=== PATIENT | male | born 2000 | race Hispanic/Latino ===

== ENCOUNTER 2020-07-16 23:26 | Emergency (ER) | payer BC ==
--- NOTE | 2020-07-17 00:21 | EDPHYS ---
Physician Documentation [facility] Name: Moustapha Sagastume Age: 20 yrs Sex: Male : 2000 Arrival Date: 07/16/2020 Time: 23:27 Bed 4 Private MD: ED Physician Chuck Salcedo HPI: 07/17 00:09 This 20 yrs old Male presents to ER via Ambulatory with complaints of tw4 Infection On Leg. 00:09 The patient was bitten on the lateral aspect of left calf, left lateral ankle, lateral tw4 aspect of left foot, medial aspect of left calf, left medial ankle and medial aspect of left foot. Onset: The symptoms/episode began/occurred today. Animal information: bit by ant after stepping in an ant pile. Secondary to the bite the patient reports warmth. Associated signs and symptoms: The patient has no apparent associated signs or symptoms. The patient has not experienced similar symptoms in the past. Historical: - Allergies: 07/16 23:53 No Known Allergies; lp1 - Home Meds: 23:53 None [Active]; lp1 - PMHx: 23:53 Depression; lp1 - PSHx: 23:53 None; lp1 - Immunization history:: Adult Immunizations up to date. - Social history:: Smoking status: Patient denies any tobacco usage or history of. ROS: 07/17 00:09 Constitutional: Negative for fever, chills, and weight loss, Eyes: Negative for injury, tw4 pain, redness, and discharge, Cardiovascular: Negative for chest pain, palpitations, and edema, Respiratory: Negative for shortness of breath, cough, wheezing, and pleuritic chest pain, Abdomen/GI: Negative for abdominal pain, nausea, vomiting, diarrhea, and constipation, Back: Negative for injury and pain. MS/extremity: Positive for erythema. Skin: Positive for cellulitis, erythema, Negative for abrasions, abscesses, avulsion, burn, discoloration, ecchymosis, hematoma, jaundice. Exam: 00:09 Constitutional: This is a well developed, well nourished patient who is awake, alert, tw4 and in no acute distress. Eyes: Pupils equal round and reactive to light, extra-ocular motions intact. Lids and lashes normal. Conjunctiva and sclera are non-icteric and not injected. Cornea within normal limits. Periorbital areas with no swelling, redness, or edema. Cardiovascular: Regular rate and rhythm with a normal S1 and S2. No gallops, murmurs, or rubs. Normal PMI, no JVD. No pulse deficits. Respiratory: Lungs have equal breath sounds bilaterally, clear to auscultation and percussion. No rales, rhonchi or wheezes noted. No increased work of breathing, no retractions or nasal flaring. 00:09 Skin: Appearance: Color: erythematous, injury, bite(s), superficial, rash a moderate rash is noted, consistent with on the lateral aspect of left calf, left lateral ankle, lateral aspect of left foot, left calf, left Achilles, left heel, medial aspect of left calf, left medial ankle, medial aspect of left foot, left stanton, anterior aspect of left ankle and dorsum of left foot. Vital Signs: 07/16 23:48 BP 119 / 76; Pulse 72; Resp 16; Temp 98.3(O); Pulse Ox 100% on R/A; Weight 63.5 kg (R); lp1 MDM: 23:38 Patient medically screened. tw4 07/17 06:53 Differential diagnosis: superficial laceration. Data reviewed: vital signs, nurses tw4 notes. Counseling: I had a detailed discussion with the patient and/or guardian regarding: the historical points, exam findings, and any diagnostic results supporting the discharge/admit diagnosis. Special discussion: I discussed with the patient/guardian in detail that at this point there is no indication for admission to the hospital. It is understood, however, that if the symptoms persist or worsen the patient needs to return immediately for re-evaluation. Administered Medications: 00:05 Not Given (Physician Discretion): Cleocin 600 mg IVPB once over 30 mins; (mix in 50 mL) wh 00:19 Drug: Cleocin 600 mg Route: IM; Site: right gluteus; wh 00:46 Follow up: Response: Medication administered at discharge. rv 00:44 Drug: SOLU-Medrol 125 mg Route: IM; Site: right deltoid; rv 00:46 Follow up: Response: Medication administered at discharge. rv Disposition: 07/17/20 00:20 Discharged to Home. Impression: Insect bite (nonvenomous) of foot. - Condition is Stable. - Discharge Instructions: Insect Bite, [id number]. - Prescriptions for Cleocin 300 mg Oral Capsule - take 1 capsule by ORAL route every 6 hours for 10 days; 40 capsule. Medrol (Reinaldo) 4 mg Oral Tablets, Dose Pack - take 1 tablet by ORAL route as directed - follow package instructions; 1 packet. - Medication Reconciliation Form, Thank You Letter, Antibiotic Education, Prescription Opioid Use form. - Follow up: Private Physician; When: Upon discharge from the Emergency Department; Reason: Recheck today's complaints, Continuance of care, Re-evaluation by your physician. - Problem is new. - Symptoms have improved. Signatures: Dispatcher [employer] EDMS Marilyn Wiggins, RN RN lp1 Anita, Michael Chuck Salcedo MD MD tw4 August Ruiz RN RN rv Corrections: (The following items were deleted from the chart) 00:05 07/16 23:46 IV Saline Lock ordered. [facility] 07/17 00:47 00:20 07/17/2020 00:20 Discharged to Home. Impression: Insect bite (nonvenomous) of rv foot. Condition is Stable. Forms are Medication Reconciliation Form, Thank You Letter, Antibiotic Education, Prescription Opioid Use. Follow up: Private Physician; When: Upon discharge from the Emergency Department; Reason: Recheck today's complaints, Continuance of care, Re-evaluation by your physician. Problem is new. Symptoms have improved. 4
--- NOTE | 2020-07-17 00:21 | ER ---
Nurse's Notes [facility] Name: Moustapha Sagastume Age: 20 yrs Sex: Male : 2000 Arrival Date: 07/16/2020 Time: 23:27 Bed 4 Private MD: Diagnosis: Insect bite (nonvenomous) of foot Presentation: 07/16 23:48 Chief complaint: Patient states: Pain and burning to left foot that began suddenly this lp1 afternoon, rash and swelling noted to left foot; rash noted to bilateral dorsal side of hands, similar to left foot, patient denies burning or itching;. Coronavirus screen: Client denies travel out of the [place] in the last 14 days. At this time, the client does not indicate any symptoms associated with coronavirus-19. Ebola Screen: No symptoms or risks identified at this time. Initial Sepsis Screen: Does the patient meet any 2 criteria? No. Patient's initial sepsis screen is negative. Does the patient have a suspected source of infection? No. Patient's initial sepsis screen is negative. Risk Assessment: Do you want to hurt yourself or someone else? Patient reports no desire to harm self or others. Onset of symptoms was July 16, 2020 at 16:00. 23:48 Method Of Arrival: Ambulatory lp1 23:48 Acuity: SHANON 3 lp1 Triage Assessment: 07/17 00:46 General: Appears uncomfortable, Behavior is calm, cooperative. Pain: Complains of pain rv in left foot. Historical: - Allergies: 07/16 23:53 No Known Allergies; lp1 - Home Meds: 23:53 None [Active]; lp1 - PMHx: 23:53 Depression; lp1 - PSHx: 23:53 None; lp1 - Immunization history:: Adult Immunizations up to date. - Social history:: Smoking status: Patient denies any tobacco usage or history of. Screenin:53 Abuse screen: Denies threats or abuse. Denies injuries from another. Nutritional lp1 screening: No deficits noted. Tuberculosis screening: No symptoms or risk factors identified. Fall Risk None identified. 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 wh Pt stated it was ant bite that cause the redness and swelling on his left leg and it was intentional. Notified MD. Vital Signs: 11 23:48 BP 119 / 76; Pulse 72; Resp 16; Temp 98.3(O); Pulse Ox 100% on R/A; Weight 63.5 kg (R); lp1 ED Course: 23:27 Patient arrived in ED. cl3 23:38 Chuck Salcedo MD is Attending Physician. tw4 23:52 Triage completed. lp1 23:52 Arm band placed on. lp1 23:53 Patient has correct armband on for positive identification. lp1 07/17 00:06 August Ruiz, RN is Primary Nurse. rv 00:46 No provider procedures requiring assistance completed. Patient did not have IV access rv during this emergency room visit. Administered Medications: 00:05 Not Given (Physician Discretion): Cleocin 600 mg IVPB once over 30 mins; (mix in 50 mL) 00:19 Drug: Cleocin 600 mg Route: IM; Site: right gluteus; 00:46 Follow up: Response: Medication administered at discharge. rv 00:44 Drug: SOLU-Medrol 125 mg Route: IM; Site: right deltoid; rv 00:46 Follow up: Response: Medication administered at discharge. rv Outcome: 00:20 Discharge ordered by . tw4 00:47 Discharged to Law Enforcement rv 00:47 Condition: good 00:47 Discharge instructions given to [employer]UP[employer] PROFESSIONAL Instructed on discharge instructions, follow up and referral plans. medication usage, Demonstrated understanding of instructions, follow-up care, medications, Prescriptions given X 2. 00:47 Patient left the ED. rv Signatures: Marilyn Wiggins, RN RN 1 Michael Howard Chuck Salcedo MD MD [facility] August Ruiz, ROBERTO RN Tyler Crowe cl3
[2020-07-17] MEDS ORDERED: CLINDAMYCIN IV 150 MG/ML (4 mL) VIAL ONE (00:25)
[2020-07-17] MEDS ORDERED: METHYLPREDNISOLONE 125 MG INJ ONE (00:52)
[2020-07-17 01:07] VITALS: BP 119/76; TEMP 98.3; O2SAT 100
== END 2020-07-17 00:47 | disposition home or self-care (01) ==
LOC: ER 23:26
DX: S80.862A Insect bite (nonvenomous), left lower leg, initial encounter (principal)
CPT/HCPCS: 96372; 99283; S0077; J2930